=== PATIENT | female | born 1935 | race Caucasian/White ===

== ENCOUNTER → 2017-11-09 | Outpatient (CLI) | payer MEDICARE ==
[~2017-11-09] MED LIST: ACETAMINOPHEN-1 EAC1 PO; ACETAMINOPHEN-1 EAC2 PO; ALENDRONATE SOD70 MG PO; ALEVE220 M1 PO; AMLODIPINE BESY10 MG PO; ASPIRIN81 M2 PO; BENTYL 10 MG CA10 M1 PO; BONIVA150 MG PO; BONIVA3 MG/3 ML IV; BUSPIRONE HCL10 MG PO; BUTRANS1 EAC1 TD; CALCIUM 600 +1 EAC1 PO; CALCIUM OYSTER500 MG; CODEINE PO; DURAGESIC1 EAC2 TRANSDERM; FENTANYL PA12 MCG/H1 TP; FENTANYL PA25 MCG/HR TP; FENTANYL PA50 MCG/HR TP; FENTANYL PA50 MCG/HR TRANSDERM; FISH OIL 1,0001 EAC5 PO; FLEXERIL PO; FOSAMAX 35 MG35 MG PO; GLUCOSAMINE CH1 EAC7 PO; GRALISE600 MG PO; HYDROCHLOROTHIA25 M2 PO; KLOR-CON 1010 MEQ PO; LEVOTHYROXINE0.05 MG PO; LIORESAL 10 MG10 MG PO; LYRICA 50 MG50 MG PO; MAGOX 400400 MG PO; MEGESTROL ACETA40 MG PO; MELATONIN1 MG PO; MELOXICAM7.5 MG PO; METOCLOPRAMIDE10 MG PO; MOBIC15 MG PO; MOBIC7.5 MG PO; NEURONTIN 300300 M1 PO; NORVASC 5 MG TAB5 MG PO; OMEPRAZOLE20 M2 PO; ONDANSETRON HCL4 M2 PO; PERCOCET 5-3251 EACH PO; PRAVASTATIN SOD40 MG PO; PRINIVIL5 MG PO; REMERON 30 MG T30 MG PO; REMERON15 MG PO; SYNTHROID75 MCG PO; TRANSDERM-SCO1 PATC1 TD; TRAZODONE HCL50 MG PO; TYLENOL WITH CO1 TAB PO; VICODIN PO; VITAMIN D400 UNI1
== END ==
LOC: M.ULTRA 11-06 10:30
DX: K55.1 Chronic vascular disorders of intestine (principal); K21.9 Gastro-esophageal reflux disease without esophagitis; J32.9 Chronic sinusitis, unspecified

== ENCOUNTER → 2017-11-09 | Outpatient (CLI) | payer MEDICARE ==
--- NOTE | 2017-11-24 09:02 | PAINCON ---
[address] [address] PAIN MANAGEMENT CONSULTATION Name: JABARI VELASQUEZ Room: [facility]#: [id number] Admission: 11/09/17 Attend Phys: Bryan Hill DO Discharge: Date of : 34 Report #: [id number] THIS REPORT FOR: //name// CC: Bryan Gagnon DATE OF SERVICE: 11/09/2017 CHIEF COMPLAINT: Low back pain, right lower extremity pain and paresthesias. HISTORY OF PRESENT ILLNESS: As you know, the patient is a very pleasant 82-year-old female who returns today in followup visit per the request of her neurosurgeon to undergo the next in a series of epidural injections. The patient indicates her neurosurgeon wishes to trial more conservative treatment before moving forward with the necessary surgical options. She did very well with previous epidural injection providing about 80% improvement in overall pain lasting for about 3 weeks. Unfortunately, recurrence of symptoms, have occurred without inciting injury or trauma. She returns to undergo next in the series in hopes of improving pain. ALLERGIES: SULFA, METRONIDAZOLE. CURRENT MEDICATIONS: See the extensive list in chart. SOCIAL HISTORY: The patient denies tobacco, alcohol, IV or illicit drug use. She is retired; retired years ago; unaccompanied today. IMAGING: There is no new imaging available. PHYSICAL EXAMINATION: VITAL SIGNS: Blood pressure 154/82, pulse is 78, respiratory rate 16 and unlabored. The patient is 93% on room air, current temperature 98.7 degrees Fahrenheit, height 4 feet 11 inches tall, weight 98.8, kg, BMI calculated 19.9. GENERAL: Well-developed, well-nourished, well-hydrated, thin scoliotic and kyphotic 82-year-old female appearing her stated age, pain is rated around 5/10. HEENT: Normocephalic, atraumatic. Pupils equal, round, reactive to light. EXTREMITIES: Show no clubbing, no cyanosis, no edema. MUSCULOSKELETAL: Seated straight leg raising negative. Supine straight leg raising positive right. ALEC test negative. Modified Gaenslen's positive for axial back pain. Ankle clonus negative. Babinski is negative. ASSESSMENT: 1. Symptomatic lumbar radiculopathy. 2. 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 3. Lumbosacral spondylosis with radiculopathy. 4. [place] [address] PAIN MANAGEMENT CONSULTATION Name: JABARI VELASQUEZ Room: [facility]#: [id number] Admission: 11/09/17 Attend Phys: Bryan Hill DO Discharge: Date of : 34 Report #: [id number] 5. Chronic lumbar degeneration. 6. Chronic intractable pain. PLAN: 1. The patient returns today in followup visit to undergo next in the series of epidural injections. She reports about 80% improvement in overall pain with previous epidural injection lasting for about 2-3 weeks. Unfortunately, the patient has had a slow and progressive return of symptoms. She returns requesting next in a series of epidural injections in hopes of improving pain further. At this point, the patient does not have plans to follow up with neurosurgery until we have completed the 3-shot series. This is the second in the series. She has been advised risks and benefits of the procedure. These risks include but not necessarily limited to bleeding, bruising, infection, worsening pain, no relief of pain and also risk of temporary or permanent muscle weakness, temporary or permanent nerve damage, possible paralysis and . The patient states she understood and wished to proceed. 2. No medication changes were made at today's visit. The patient to continue current medical therapy as previously prescribed. 3. We will see the patient back in followup visit for next in the series of epidural injections. PROCEDURE NOTE: Lumbar epidural injection under fluoroscopic guidance. DESCRIPTION OF PROCEDURE: After obtaining written consent, the patient was taken back to fluoroscopy suite, placed in prone position with pillow under abdomen to decrease lumbar lordosis. Skin overlying lumbosacral area then prepped and draped in aseptic fashion: Lumbar intervertebral spaces were identified by AP fluoroscopy. Skin and subcutaneous tissue overlying target site of injection was anesthetized with 3 mL of 1% lidocaine. A 20-gauge 3-1/2 inch Tuohy needle advanced under fluoroscopic guidance towards the epidural space using paramedian approach. Epidural space identified using loss of resistance to air technique. After negative aspiration for heme or cerebrospinal fluid, 1 mL of Omnipaque was injected. Lumbar epidurogram was confirmed using both AP and lateral fluoroscopy. After negative aspiration for heme or cerebrospinal fluid, 5 mL of a solution containing 2 mL 40 mg per mL, 80 mg total triamcinolone, 3 mL lidocaine 1% injected slowly. Needle retracted usp, flushed with 1 mL of 1% lidocaine and removed. Sterile bandage placed over injection site. No new motor deficits present in the lower extremity following procedure. The patient tolerated procedure well, carefully escorted to the recovery room in [address] [address] PAIN MANAGEMENT CONSULTATION Name: JABARI VELASQUEZ Room: [facility]#: [id number] Admission: 11/09/17 Attend Phys: Bryan Hill DO Discharge: Date of : 34 Report #: [id number] stable condition. No apparent complications. After meeting discharge criteria, the patient discharged home. <ELECTRONICALLY SIGNED> By: Bryan Hill DO 11/24/1702 0921 [id number] Hill DO /nt
== END | disposition home or self-care (01) ==
LOC: M.PC 00:56
DX: M51.16 Intervertebral disc disorders with radiculopathy, lumbar region (principal); M47.27 Other spondylosis with radiculopathy, lumbosacral region; Z98.890 Other specified postprocedural states; G89.29 Other chronic pain

== ENCOUNTER → 2017-11-17 | Outpatient (CLI) | payer MEDICARE ==
[2017-11-17 08:57] VITALS: BP 138/68
== END ==
LOC: M.INT 08:43
DX: R10.9 Unspecified abdominal pain (principal); R11.10 Vomiting, unspecified; Z90.49 Acquired absence of other specified parts of digestive tract; Z98.890 Other specified postprocedural states

== ENCOUNTER → 2017-11-18 | Outpatient (CLI) | payer MEDICARE ==
[2017-11-18 08:48] LABS: HEMATOCRIT 36.8 % (37.0-47.0); HEMOGLOBIN 12.5 gm/dL (12.0-15.0); MCH 31.5 pg (26.0-34.0); MCHC 33.9 g/dL (28.0-37.0); MCV 92.9 fL (80.0-100.0); MPV 7.1 fl. (7.2-11.1); RBC 3.97 mil/uL (4.20-5.00); WBC 10.2 thou/uL (4.0-11.0)
[2017-11-18 09:03] LABS: ALBUMIN 3.7 g/dL (3.4-5.0); CALCIUM 9.5 mg/dL (8.5-10.1); CREATININE 0.9 mg/dL (0.6-1.3); TOTAL BILIRUBIN 0.4 mg/dL (<0.1-1.0); TOTAL PROTEIN 6.8 g/dL (6.4-8.2)
== END ==
LOC: M.LAB 08:30 → M.CT 08:33
PROVIDERS: Radiology Diagnostic Radiology
DX: K55.1 Chronic vascular disorders of intestine (principal); I70.1 Atherosclerosis of renal artery; J98.4 Other disorders of lung; K86.89 Other specified diseases of pancreas; J32.9 Chronic sinusitis, unspecified

== ENCOUNTER → 2017-11-30 | Outpatient (CLI) | payer MEDICARE | LOC: M.LAB 15:35 | DX: K86.9 Disease of pancreas, unspecified (principal); R10.9 Unspecified abdominal pain ==

== ENCOUNTER → 2017-11-30 | Outpatient (CLI) | payer MEDICARE ==
--- NOTE | 2017-12-15 07:28 | PAINCON ---
[place] [address] PAIN MANAGEMENT CONSULTATION Name: JABARI VELASQUEZ Room: [facility]#: [id number] Admission: 11/30/17 Attend Phys: Bryan Hill DO Discharge: Date of : 34 Report #: [id number] THIS REPORT FOR: //name// CC: Bryan Gagnon DO DATE OF SERVICE: 11/30/2017 REFERRING PHYSICIAN: Ralph Gagnon D.O. CHIEF COMPLAINT: Low back pain, right lower extremity pain and paresthesias. HISTORY OF PRESENT ILLNESS: As you know, the patient is a very pleasant 82-year-old female who returns today in followup visit with plans to undergo spinal cord stimulator implantation for trial leads. The patient today is placing pain score 0-1/10. She states the epidural injection in conjunction with medication management has been successful at alleviating her symptoms. She returns today stating activities such as walking, standing for long periods of time, sitting for longer periods of time, climbing stairs exacerbate symptoms but since the epidural injection, her pain is nearly resolved. She returns to discuss the possibility of undergoing spinal cord stimulator trial implantation today. ALLERGIES: SULFA and METRONIDAZOLE. CURRENT MEDICATIONS: Amlodipine, aspirin, buspirone, calcium carbonate, Tylenol 4, dicyclomine, vitamin D, glucosamine chondroitin, hydrochlorothiazide, Boniva, levothyroxine, meloxicam, mirtazapine, omega 3 fish oil, omeprazole, ondansetron, scopolamine and potassium chloride. SOCIAL HISTORY: The patient denies tobacco, alcohol, IV or illicit drug use. She is unaccompanied today. IMAGING DATA: No new imaging available. PHYSICAL EXAMINATION: VITAL SIGNS: Blood pressure 149/73, pulse 69 and respiratory rate 16 and unlabored. The patient is 97% on room air, current temperature 98.6 degrees Fahrenheit, height 4 feet 11 inches tall, weight 100.8 pounds and BMI calculated 20.4. GENERAL: Well-developed, well-nourished, well-hydrated, thin, scoliotic and kyphotic 82-year-old female appearing her stated age, placing pain score today 0-1/10. HEENT: Normocephalic and atraumatic. Pupils equal, round [place] [address] PAIN MANAGEMENT CONSULTATION Name: JABARI VELASQUEZ Room: [facility]#: [id number] Admission: 11/30/17 Attend Phys: Bryan Hill DO Discharge: Date of : 34 Report #: [id number] EXTREMITIES: Show no clubbing, no cyanosis and no edema. MUSCULOSKELETAL: Seated straight leg raising negative. Supine straight leg raising mildly positive right. Huan's test negative. Modified Gaenslen's positive for axial low back pain. Ankle clonus negative. Babinski is negative. ASSESSMENT: 1. Symptomatic lumbar radiculopathy. 2. Displacement of lumbar intervertebral disk with radiculopathy. 3. Lumbosacral spondylosis with radiculopathy. 4. Failed lumbar spine surgery. 5. Chronic intractable pain. PLAN: 1. The patient returns today in followup visit with plans to undergo spinal cord stimulator trial implantation. At this time, the patient is reporting pain score 0/10. She has had near complete resolution with the epidural injection provided 11/09/2017 that in conjunction with medication management. At this point, I recommend to the patient that we delay the trial implantation with no pain. It would be difficult to determine efficacy of the device if we have no symptoms to improve. We would recommend that the patient delay the trial implantation until which time her pain intensifies or returns to a level of intolerability. At that point, it would be most effective to trial this device. The patient was amenable and understands and will contact her clinic when and if her pain does return to undergo trial implantation. 2. No medication changes were made at today's visit. The patient is to continue current medical therapy as previously prescribed. We did describe to the patient our desire that she take her medications only on an as needed basis. Apparently, she has been taking these medications consistently. The pain medications are specifically for p.r.n. dosing. The patient will adjust her use of the therapy. 3. We will see the patient back in followup visit on an as needed basis and we are pleased to see she is doing well, but we will be available to see her back to begin trial implantation. <ELECTRONICALLY SIGNED> By: Bryan Hill DO 12/15/17 0728 [id number] [id number] Hill DO /nt
== END ==
LOC: M.PC 00:57
DX: M51.16 Intervertebral disc disorders with radiculopathy, lumbar region (principal); M47.27 Other spondylosis with radiculopathy, lumbosacral region; G89.29 Other chronic pain

== ENCOUNTER → 2017-12-09 | Outpatient (CLI) | payer MEDICARE ==
--- NOTE | 2017-12-14 07:21 | PAINCON ---
[address] [address] PAIN MANAGEMENT CONSULTATION Name: JABARI VELASQUEZ Room: [facility]#: [id number] Admission: 12/09/17 Attend Phys: Danae Aguilar Discharge: Date of : 34 Report #: [id number] THIS REPORT FOR: //name// CC: Ralph Hill DATE OF SERVICE: 12/09/2017 The patient is quite a delightful 82-year-old female typically treated by Dr. Bryan Hill. She was diagnosed with symptomatic lumbar radiculopathy, component of lumbar spondylosis. She has done well with occasional epidural injections, it appears that she has had 2 injections, 10/12/2017 and 11/30/2017. They talked about a spinal cord stimulator trial, but when she presented for this 11/30/2017, she was actually doing very well and the spinal cord stimulator was postponed. She presents to pain clinic today noting pain has begun to recur. She has pain in the low back and left leg in an L5 radicular pattern. With ongoing concerns about newly diagnosed pancreatic mass, nausea, weight loss and diarrhea (down to 95 pounds from 100 pounds in a few weeks), she is concerned about significant interventional issues including spinal cord stimulator placement. She is, however, having ongoing lumbar radicular pain and would like to repeat an epidural injection today. PHYSICAL EXAMINATION: Does show a pleasant 82-year-old female. She is quite petite at 4 feet 11 inches and 95 pounds. BMI is 19.4 kg/m2. Blood pressure 142/87, pulse 89, respirations 16. Alert and oriented to person, place and time, judged to be a reasonable historian. Rises from chair using armrest. Diffuse tenderness across the low back, positive straight leg raise in left, slight decreased plantar flexion strength. ASSESSMENT: Symptomatic lumbar radiculopathy, clinical exam and history and recent diagnosis of pancreatic mass. RECOMMENDATION: After discussion with the patient today about therapeutic options, we have elected to repeat epidural injection under fluoroscopy today. The patient was rather hypertensive in the recovery room, blood pressure was ranging from 140-179, diastolic of 83-116. She does treat with Dr. Gagnon whose clinic is in our building. We did contact our office and they agreed to see her upon discharge from our clinic. ASSESSMENT: Symptomatic lumbar radiculopathy secondary to spinal stenosis. PROCEDURE: Lumbar epidural [place] [address] PAIN MANAGEMENT CONSULTATION Name: STEPHANIE VELASQUEZAbner Cui Room: [facility]#: [id number] Admission: 12/09/17 Attend Phys: Danae Aguilar Discharge: Date of : 34 Report #: [id number] PROCEDURE NOTE: After both written and informed consent to include risk of spinal cord damage, increased pain, weakness and dural puncture, the patient was taken to the fluoroscopy suite, placed in the prone position. After sterile prep and drape, a skin wheal with lidocaine was raised. A 22-gauge epidural Tuohy needle was inserted in the midline at L5-S1 with good loss to resistance. Negative aspiration for cerebrospinal fluid or blood was noted. Then 1 mL of Omnipaque under biplanar fluoroscopy showed good spread within the epidural space. This was followed with 80 mg of triamcinolone plus 1 mL of 1.5% preservative-free Xylocaine, 0.5 mL Xylocaine was then injected to flush the needle; it was removed. The patient was monitored for an appropriate period of time and discharged in good and stable condition. We did talk about future therapeutic options. After the patient's pancreatic issue is resolved and ostensibly acute hypertensive issue is resolved, we will be happy to see her in followup as needed for consideration for spinal cord stimulator trial if indicated in the future. <ELECTRONICALLY SIGNED> By: Ralph Hill DO 12/14/17 0721 [id number] [id number] Hill DO /nt
== END | disposition home or self-care (01) ==
LOC: M.PC 02:50
DX: M54.16 Radiculopathy, lumbar region (principal); M48.061 Spinal stenosis, lumbar region without neurogenic claudication; Z98.890 Other specified postprocedural states; Z88.2 Allergy status to sulfonamides; Z88.8 Allergy status to other drugs, medicaments and biological substances; Z79.82 Long term (current) use of aspirin; Z79.899 Other long term (current) drug therapy

== ENCOUNTER → 2018-01-27 | Outpatient (CLI) | payer MEDICARE ==
--- NOTE | 2018-01-29 09:51 | PAINCON ---
[facility] [address] [place] [address] PAIN MANAGEMENT CONSULTATION Name: JABARI VELASQUEZ Room: [facility] Rafa#: [id number] Admission: 01/27/18 Attend Phys: Danae Aguilar Discharge: Date of : 34 Report #: [id number] THIS REPORT FOR: //name// CC: Ralph Hill DATE OF SERVICE: 01/27/2018 PAIN CLINIC NOTE The patient is a pleasant 82-year-old female last seen December for ongoing radicular symptoms. They did an epidural injection at that time. She prior had lumbar epidural injections in October and November. The patient returns to pain clinic today. Had a moderately prolonged visit today. She tells me in the interval since I last saw her, she had been having GI issues, ultimately was worked up and found to have pancreatic cancer, stage 2. She has started on chemotherapy with intended cycles through the next 2-4 months. They will evaluate efficacy on tumor bulk. If doing well, they may consider surgery (pancreatic resection?). She returns to pain clinic today, we had discussed the fact that with ongoing pain status post to her lumbar decompressive laminectomy in 2014 with low back, left leg radicular pain and lack of adequate efficacy following epidural injections that she would be an excellent spinal cord stimulator candidate. However, given the new issues arising with cancer, chemotherapy and possible abdominal surgery, we have elected to postpone spinal cord stimulator trial. She did pass her psychological evaluation as expected. She remains an excellent candidate; however, again would not want to do a trial and specifically the implantation with the patient immunosuppressed on chemotherapy or recovering from major abdominal surgery. Today, we had a prolonged visit about therapeutic options. She is having ongoing axial back pain. Fortunately, she notes that the GI issues are really fairly benign. She notes that her back and leg pain; however, does interfere with function. She has been intolerant of most other opiates. We tried hydrocodone with lack of efficacy. She does well with Tylenol No. 4. No problems with constipation. She rates her pain at 4 presently with current medication. She has been taking Tylenol No. 4 up to 3-4 a day, meloxicam 15 mg 1 a day. PHYSICAL EXAMINATION: Otherwise unchanged, pleasant, petite 82-year-old female, 4 feet 11 inches, 93 pounds, BMI is 19.5 kilograms per meter squared, blood pressure 149/79, pulse of 110, respirations 18. Rises from chair using armrest, diffuse tenderness across the low back. Gait is modestly antalgic, [place] [address] PAIN MANAGEMENT CONSULTATION Name: JABARI VELASQUEZ Room: [facility].#: [id number] Admission: 01/27/18 Attend Phys: Danae Aguilar Discharge: Date of : 34 Report #: [id number] radiating into the left leg with modestly positive straight leg raise at 30 degrees. ASSESSMENT: 1. Symptomatic lumbar radiculopathy status post decompressive laminectomy. 2. Pancreatic cancer, stage 2. 3. Complex medication management. RECOMMENDATIONS: I did enter into an opiate consent to treat contract with the patient today. Talk to her the risks, benefits of chronic opiate therapy. Discussed concerns for opiate habituation tolerance, chronic constipation and sedation. Ultimately, we elected to give the patient a prescription for Tylenol No. 4, 100 tablets, limit 1 tablet 3-4 times a day, prescriptions for release today and in 4 weeks. Follow up in 2 months for reevaluation. Again, we will "put on hold" our plans to move forward with the spinal cord stimulator. Discharged in good and stable condition after approximately 30-minute visit spent reviewing therapeutic options, opiate consent to treat contract and interval health changes. <ELECTRONICALLY SIGNED> By: Ralph Hill DO 01/29/18 0951 [id number] Hill DO /nt
== END ==
LOC: M.PC 02:27
DX: C25.7 Malignant neoplasm of other parts of pancreas (principal); M54.16 Radiculopathy, lumbar region; Z79.899 Other long term (current) drug therapy

== ENCOUNTER → 2018-03-24 | Outpatient (CLI) | payer MEDICARE ==
--- NOTE | 2018-03-25 07:50 | PAINCON ---
[facility] [address] [place] [address] PAIN MANAGEMENT CONSULTATION Name: JABARI VELASQUEZ [facility] [id number] Admission: 03/24/18 Attend Phys: Danae Aguilar Discharge: Date of : 34 Report #: [id number] THIS REPORT FOR: //name// CC: Ralph Hill The patient is an 82-year-old female, prior seen for symptomatic lumbar radiculopathy, status post decompressive laminectomy, she had failed lumbar epidural injections and was planning on moving forward with spinal cord stimulator trial, unfortunately she developed ongoing abdominal pain, ultimate workup proved to be a pancreatic cancer. The patient has completed all but the last week and half of her chemotherapy and radiation therapy. She returns to pain clinic today noting pain is fairly nominal, in fact notes current medication including codeine No. 4 one tablet 3-4 times a day and Meloxicam 15 mg a day has been quite helpful. She has left lumbar radicular pain in the lateral posterior leg down to the foot for which we had considered the spinal cord stimulator. Discussion at length with the patient today. We elected to continue her Tylenol No. 4 for abdominal and lumbar radicular pain, I have taken the liberty of writing for 100 tablets with 2 refills. Suggested that we probably want to wait 3-6 months after completion of her chemo and radiation therapy before moving forward with spinal cord stimulator trial. I suggested that her primary treating physician could certainly write for her ongoing Tylenol No. 4. She can follow up with Dr. Bryan Hill at [facility] for a spinal cord stimulator trial as needed moving forward. Discharged in good and stable condition today. <ELECTRONICALLY SIGNED> By: Ralph Hill DO 03/25/18 0750 [id number] [id number] Hill DO /nt
== END ==
LOC: M.PC 03:55
DX: C25.9 Malignant neoplasm of pancreas, unspecified (principal); M54.16 Radiculopathy, lumbar region; R10.9 Unspecified abdominal pain

== ENCOUNTER → 2018-08-12 | Outpatient (CLI) | payer MEDICARE ==
--- NOTE | 2018-08-16 10:00 | PAINCON ---
[address] [address] PAIN MANAGEMENT CONSULTATION Name: JABARI VELASQUEZ [id number] Admission: 08/12/18 Attend Phys: Fred Gibbs MD Discharge: Date of : 33 Report #: [id number] THIS REPORT FOR: //name// CC: Fred Gagnon DO DATE OF SERVICE: 08/12/2018 PRIMARY CARE PHYSICIAN: Ralph Gagnon D.O. CHIEF COMPLAINT: Low back pain. HISTORY OF PRESENT ILLNESS: The patient is an 82-year-old female who has been followed in the pain clinic by Dr. Ralph Hill. This is my first visit with the patient. She has a history of low back pain. She has undergone epidural steroid injections in the past. She suffers from spinal stenosis. She feels that her current use of Tylenol with Codeine No. 4 has been helpful. She would like to have these medications renewed. She is contemplating moving to [place] because it would fit the family. At this juncture, she rates her pain as a 2/10. She has had surgery. She has been found to have pancreatic cancer stage 2. She has been treated with chemotherapy. The patient also has pain, status post lumbar decompressive laminectomy in 2014 and some low back pain in her left leg with radiation down into the leg. She has undergone epidural steroid injections and found that, that has been helpful. She had been seen by Dr. Hill and the possibility of spinal cord stimulator had been entertained. Given her current history, they have put that on hold. She has returned today and would like to have renewal of her medications. ALLERGIES: SULFA, METRONIDAZOLE. CURRENT MEDICATIONS: Norvasc 5 mg at bedtime, aspirin 81 mg, buspirone 10 mg, calcium 600/vitamin D 1 tablet, Codeine No. 4 t.i.d./q.i.d., vitamin D, glucosamine chondroitin, hydrochlorothiazide 25 mg, levothyroxine 75 mcg, magnesium oxide 400 mg, megestrol 40 mg, Mobic 15 mg, fish oil 1000 mg, omeprazole 20 mg, potassium 10 mEq, chemo p.o. b.i.d. for 2 weeks on and 2 weeks off. PAST MEDICAL HISTORY: Gallbladder disease, thyroid disease, joint disease/arthritis, hypertension, anemia, possible pancreatic cancer, COPD, history of hernia. PAST SURGICAL HISTORY: Cholecystectomy in 2003, hernia repair in 1982, infected tooth removal in 1991, tubal ligation [id number], and tendon repair in 2004. [place] [address] PAIN MANAGEMENT CONSULTATION Name: MANUELAMISTYJABARI Room: [facility]#: [id number] Admission: 08/12/18 Attend Phys: Fred Gibbs MD Discharge: Date of : 33 Report #: [id number] SOCIAL HISTORY: She is retired. REVIEW OF SYSTEMS: Wears glasses, hearing loss, and thyroid disease. LABORATORY DATA: No new laboratory values are available at the time of our interview. PAIN CLINIC ASSESSMENT: 1. The patient is not being treated for rheumatoid arthritis or osteoarthritis. 2. Height 4 feet 11 inches, weight 85 pounds, BMI is 17. 3. Vital signs: Blood pressure 116/71, heart rate 91, respiratory rate 16, room air saturation 96%, temperature 98.2, and pain score 2/10. 4. Fall history: The patient has not fallen in the last 3 months. 5. Blood thinner. The patient is not on a blood thinning medication. 6. Hypertension. The patient is being treated for hypertension. 7. Opioid therapy greater than 6 weeks. The patient receives her medications from one source, the pain clinic. 8. Risk assessment tool, low for opioid use. 9. Functional assessment tool. 10. Recreational drug use. The patient denies use of recreational drugs. 11. Tobacco. The patient denies use of tobacco. 12. Alcohol. The patient denies frequent use of alcoholic beverages. PHYSICAL EXAMINATION: GENERAL: The patient is a very petite white female. Appears her stated age. She is alert and oriented x 3. Her affect is appropriate. Speech is fluent. HEENT: Normocephalic, atraumatic. Extraocular eye muscles intact. Sclerae nonicteric. Mucous membranes are moist. The patient's hearing appears adequate. NECK: Without adenopathy or JVD. HEART: Regular rate. ABDOMEN: Scaphoid. EXTREMITIES: Upper extremity muscle strength is judged to be 4+/5 for the major muscle groups. The patient without significant scoliosis, kyphosis or lordosis. Lower extremity muscle strength is judged to be 4+/5 for the major muscle groups. IMPRESSION: 1. Chronic low back pain, history of back surgery. 2. Gallbladder disease. 3. Thyroid disease. 4. Joint disease/arthritis. 5. Hypertension. 6. Anemia. 7. Possible pancreatic cancer. 8. Chronic [place] [address] PAIN MANAGEMENT CONSULTATION Name: JABARI VELASQUEZ Room: [facility]#: [id number] Admission: 08/12/18 Attend Phys: Fred Gibbs MD Discharge: Date of : 33 Report #: [id number] 9. History of hernia. RECOMMENDATIONS: We discussed treatment options with the patient. At this juncture, we will continue with her current medical regimen of Codeine No. 4. A script for 3 months of the medication has been written for the patient. She states that she is going to move to [place] to be closer with family. Hopefully, she will be able to get to a pain clinic or her primary will be able to provide her medications. States that her daughter is a nurse. The patient has been in good standing with the pain clinic. We would like to thank you for letting us participate in her care. We hope she continues to do well. <ELECTRONICALLY SIGNED> By: Fred Gibbs MD 08/16/18 [id number]. Tristan Gibbs MD /[facility]
== END ==
LOC: M.PC 06-15 04:48
DX: M54.5 Low back pain (principal); G89.29 Other chronic pain; K82.9 Disease of gallbladder, unspecified; E07.9 Disorder of thyroid, unspecified; D64.9 Anemia, unspecified; I10 Essential (primary) hypertension; J44.9 Chronic obstructive pulmonary disease, unspecified; M19.90 Unspecified osteoarthritis, unspecified site